=== PATIENT | female | born 1990 | race Caucasian/White ===

== ENCOUNTER 2016-06-02 13:09 | Emergency (ER) | payer OTHER ==
--- NOTE | 2016-06-02 14:04 | ED ---
Psych HPI - General Chief Complaint: Psychiatric Symptoms Stated Complaint: Mental health Time Seen by Provider: 06/02/16 13:20 Source: patient, police, RN notes reviewed Mode of arrival: ambulatory Limitations: no limitations - History of Present Illness Initial Comments: 25-year-old female brought to emergency department by police for psychiatric evaluation. Patient states that she made suicidal threats to her boyfriend. Patient states that she stated that she just wants to crawl underneath [employer]. Patient states that she has no plan. Denies any illicit drug use or alcohol use. Patient has a history of psychiatric problems. Patient states she has taken her medications. She states she is just stressed out. - Related Data Previous Rx's Medication Instructions Recorded OXcarbazepine [Trileptal] 150 mg PO BID #60 tab 10/31/15 LORazepam [Ativan] 0.5 mg PO BID #6 tab 06/02/16 Allergies Allergy/AdvReac Type Severity Reaction Status Date / Time latex Allergy Rash/Hives Verified 06/02/16 13:36 Sulfa (Sulfonamide Allergy Rash/Hives Verified 06/02/16 13:36 Antibiotics) Review of Systems ROS Statement: Those systems with pertinent positive or pertinent negative responses have been documented in the HPI. ROS Other: All systems not noted in ROS Statement are negative. Past Medical History Past Medical History: Hypertension Additional Past Medical History / Comment(s): 4, para 2, AB 1. Patient has had preeclampsia with 2 pregnancies. Patient has been seeking care with Dr. Noguera. History of Any Multi-Drug Resistant Organisms: None Reported Past Surgical History: Appendectomy Past Anesthesia/Blood Transfusion Reactions: No Reported Reaction Past Psychological History: Anxiety, Bipolar, Depression Smoking Status: Former smoker Past Alcohol Use History: None Reported Additional Past Alcohol Use History / Comment(s): Patient states she is a lifelong nonsmoker. She denies any medical marijuana, marijuana, street drug use. She denies any alcohol use. She has 2 children that are currently with their father. Past Drug Use History: None Reported - Past Family History Father Family Medical History: No Reported History Additional Family Medical History / Comment(s): Father in his 50s from coronary artery disease while undergoing CABG. Sister(s) Family Medical History: No Reported History Additional Family Medical History / Comment(s): Patient has 1 sister with no major medical problems. She does not have any brothers. She has 2 children that have no major medical problems. Mother Family Medical History: No Reported History Additional Family Medical History / Comment(s): Mother is in her 50s with Bipolar and schizophrenia. General Exam General appearance: alert, in no apparent distress Head exam: Present: atraumatic, normocephalic, normal inspection Eye exam: Present: normal appearance, PERRL, EOMI. Absent: scleral icterus, conjunctival injection, periorbital swelling ENT exam: Present: normal exam, normal oropharynx, mucous membranes moist, TM's normal bilaterally Neck exam: Present: normal inspection, full ROM. Absent: tenderness, meningismus, lymphadenopathy Respiratory exam: Present: normal lung sounds bilaterally. Absent: respiratory distress, wheezes, rales, rhonchi, stridor Cardiovascular Exam: Present: regular rate, normal rhythm, normal heart sounds. Absent: systolic murmur, diastolic murmur, rubs, gallop, clicks GI/Abdominal exam: Present: soft, normal bowel sounds. Absent: distended, tenderness, guarding, rebound, rigid Psychiatric exam: Present: agitated, anxious Skin exam: Present: warm, dry, intact, normal color. Absent: rash Course Vital Signs 06/02/16 13:10 Temperature 100 F H Pulse Rate 112 H Respiratory 20 Rate Blood Pressure 134/97 O2 Sat by Pulse 98 Oximetry Medical Decision Making - Medical Decision Making Patient was evaluated by EPS and discussed with psychiatrist on-call. Patient has no suicidal threats she did states that she wanted chronic to rock and because she her boyfriend in which she had an argument with. Patient will be discharged per rectum patient's own psychiatrist. Disposition Clinical Impression: Panic attack, Depression Disposition: HOME SELF-CARE Condition: Stable Instructions: Anxiety (ED) Additional Instructions: Please return to the Emergency Department if symptoms worsen or any other concerns. Prescriptions: LORazepam [Ativan] 0.5 mg PO BID #6 tab Time of Disposition: 15:16
[2016-06-02 15:57] VITALS: BP 130/74; PULSE 70; RESP 18; TEMP 98.6
== END 2016-06-02 15:45 | disposition home or self-care (01) ==
LOC: EC 13:09
DX: F41.0 Panic disorder [episodic paroxysmal anxiety] (principal); F32.9 Major depressive disorder, single episode, unspecified; Z88.2 Allergy status to sulfonamides; Z91.040 Latex allergy status; Z87.891 Personal history of nicotine dependence
CPT/HCPCS: 82075; 99283

== ENCOUNTER 2016-07-29 14:41 | Emergency (ER) | payer OTHER ==
[2016-07-29 15:03] VITALS: BP 142/82; PULSE 105; RESP 18; TEMP 98.9
[2016-07-29] MEDS ORDERED: KETOROLAC 30 MG/ML 1 ML VIAL IM STA (15:16)
[2016-07-29] MEDS ORDERED: ONDANSETRON 4 MG ODT STARTER PACK 2 TAB BTL PO STA (15:16)
--- NOTE | 2016-07-29 15:24 | ED ---
General Adult HPI - General Chief complaint: Headache Stated complaint: migraine/ear & jaw pain Time Seen by Provider: 07/29/16 15:04 Source: patient, RN notes reviewed Mode of arrival: wheelchair Limitations: no limitations - History of Present Illness Initial comments: Chief complaint and history of present illness this is a 25-year-old female here with a complaint of the left sided headache radiating to the left ear left jaw area. Ongoing for 3 days. No nausea no vomiting there is mild photophobia and irritation with sounds. Patient has had pain like this with pregnancies. Denies nausea or vomiting. Denies any weakness denies any stiff neck. Denies any difficulty walking or balance problems. - Related Data Home Medications Medication Instructions Recorded Confirmed Acetaminophen [Tylenol] 325 - 650 mg PO Q6H PRN 07/29/16 07/29/16 Previous Rx's Medication Instructions Recorded OXcarbazepine [Trileptal] 150 mg PO BID #60 tab 10/31/15 Butalb/Acetaminophen/Caffeine 1 cap PO Q4HR #10 cap 07/29/16 [Fioricet 50-300-40 mg Capsule] Ondansetron Odt [Zofran ODT] 4 mg PO Q8HR PRN #5 tab 07/29/16 Allergies Allergy/AdvReac Type Severity Reaction Status Date / Time latex Allergy Rash/Hives Verified 06/02/16 13:36 Sulfa (Sulfonamide Allergy Rash/Hives Verified 06/02/16 13:36 Antibiotics) Review of Systems ROS Statement: Those systems with pertinent positive or pertinent negative responses have been documented in the HPI. Review of systems. Patient has mild photophobia and sound make the headache worse headaches on the left side of her head. She states she also feels that her left upper jaw area. Looking to the left increases the discomfort to the left trapezius muscle. Denies any head injuries. Again no evidence of any meningismus or stiff neck. His chest pain shortness breath GI/ problems. No neuro deficits. All systems are reviewed. Past medical problems high blood pressure when . Surgeries appendectomy. Family history no cancers or aneurysms. She has ALLERGIES to latex and sulfa. She smokes a small amount quit years ago denies alcohol use ROS Other: All systems not noted in ROS Statement are negative. Past Medical History Past Medical History: Hypertension Additional Past Medical History / Comment(s): 4, para 2, AB 1. Patient has had preeclampsia with 2 pregnancies. Patient has been seeking care with Dr. Noguera. History of Any Multi-Drug Resistant Organisms: None Reported Past Surgical History: Appendectomy Past Anesthesia/Blood Transfusion Reactions: No Reported Reaction Past Psychological History: Anxiety, Bipolar, Depression Smoking Status: Former smoker Past Alcohol Use History: None Reported Additional Past Alcohol Use History / Comment(s): Patient states she is a lifelong nonsmoker. She denies any medical marijuana, marijuana, street drug use. She denies any alcohol use. She has 2 children that are currently with their father. Past Drug Use History: None Reported - Past Family History Father Family Medical History: No Reported History Additional Family Medical History / Comment(s): Father in his 50s from coronary artery disease while undergoing CABG. Sister(s) Family Medical History: No Reported History Additional Family Medical History / Comment(s): Patient has 1 sister with no major medical problems. She does not have any brothers. She has 2 children that have no major medical problems. Mother Family Medical History: No Reported History Additional Family Medical History / Comment(s): Mother is in her 50s with Bipolar and schizophrenia. General Exam - General Exam Comments Initial Comments: General: The patient is awake and alert, complains of a headache starting on the left side of the head ongoing for 3 days also affect in the left ear area and left upper jaw. Mild photophobia no nausea no vomiting. Vital signs shows temperature 98.9 pulse 105 respiratory rate 18 pulse ox on percent room air blood pressure 142/82. Elevated systolic noted. Patient be advised to follow- up with her family physician if the headache persists or return emergency room as needed. Eye: Pupils are equal, round and reactive to light, extra-ocular movements are intact ; there is normal conjunctiva bilaterally. No signs of icterus. Ears, nose, mouth and throat: There are moist mucous membranes and no oral lesions. Very poor dentition large number of teeth with caries. As well as fractured posterior #16. Strongly advised to visit a dentist as soon as possible. Neck: The neck is supple, there is no tenderness . Cardiovascular: There is a regular rate and rhythm. No murmur, rub or gallop is appreciated. Respiratory: Lungs are clear to auscultation, respirations are non-labored, breath sounds are equal. No wheezes, stridor, rales, or rhonchi. Gastrointestinal: Soft, non-distended, non-tender abdomen without masses or organomegaly noted. There is no rebound or guarding present. No CVA tenderness. Bowel sounds are unremarkable. Back: There is no tenderness to palpation in the midline. There is no obvious deformity. No rashes noted. Musculoskeletal: Normal ROM, no tenderness, There is no pedal edema. There is no calf tenderness or swelling. Sensation intact. Pulses equal bilaterally 2+. Neurological: CN II-XII intact, There are no obvious motor or sensory deficits. Coordination appears grossly intact. Speech is normal. No focal or lateralizing findings. No balance problems. Skin: Skin is warm and dry and no rashes or lesions are noted. Early shingles was discussed. Patient told she knows the rash along the left side of her head on the left forehead to return emergency room or see her family physician for evaluation for possible shingles. Psychiatric: Cooperative, appropriate mood & affect, normal judgment. History of bipolar disorder. No complaints of any depression at this time. Limitations: no limitations Course Vital Signs 07/29/16 15:01 Temperature 98.9 F Pulse Rate 105 H Respiratory 18 Rate Blood Pressure 142/82 O2 Sat by Pulse 100 Oximetry Medical Decision Making - Medical Decision Making Medical decision making; patient be treated with Toradol IM and Zofran. Given a prescription for Fioricet and Zofran to be taken as directed. Advised to watch for any changes such as a rash that might be evidence of shingles. Told follow with family physician. Get her blood pressure rechecked Disposition Clinical Impression: Headache Disposition: HOME SELF-CARE Condition: Stable Instructions: Tension Headache (ED) Additional Instructions: Apply cold compress over the alternate with heating pad to the area discomfort to the left neck area. Take Fioricet for headaches one every 6 hours. Zofran for nausea. Follow-up with family physician. He does not have one follow-up with Dr. Bloom. Prescriptions: Butalb/Acetaminophen/Caffeine [Fioricet 50-300-40 mg Capsule] 1 cap PO Q4HR #10 cap Ondansetron Odt [Zofran ODT] 4 mg PO Q8HR PRN #5 tab PRN Reason: Nausea Time of Disposition: 15:23
== END 2016-07-29 15:33 | disposition home or self-care (01) ==
LOC: EC 14:41
DX: R51 Headache (principal); Z91.040 Latex allergy status; Z88.2 Allergy status to sulfonamides; Z87.891 Personal history of nicotine dependence; R03.0 Elevated blood-pressure reading, without diagnosis of hypertension; K02.9 Dental caries, unspecified; S02.5XXA Fracture of tooth (traumatic), initial encounter for closed fracture
CPT/HCPCS: 96372; 99283; J1885; S0119

== ENCOUNTER 2016-08-21 18:08 | Emergency (ER) | payer OTHER ==
[2016-08-21 18:35] VITALS: BP 138/83; PULSE 76; RESP 16; TEMP 98.2
--- NOTE | 2016-08-21 20:12 | ED ---
General Adult HPI - General Chief complaint: Anxiety Stated complaint: ANXIETY Time Seen by Provider: 08/21/16 19:51 Source: patient, RN notes reviewed Mode of arrival: ambulatory Limitations: no limitations - History of Present Illness Initial comments: This is a 25-year-old female who presents for medication refill. Patient states she gets panic attacks every day and is unable to see her psychiatrist until Friday. Patient states they will not refill her prescription over the phone. Patient states she usually takes Ativan 1 mg daily to help prevent panic attacks. Patient states she has been out of Ativan for the last 2 days and has had panic attacks that cause her to leave work. Patient states they can happen to her multiple times throughout the day. Patient denies any chance of being . Patient denies any recent fever, chills, shortness breath, chest pain, abdominal pain, nausea/vomiting/diarrhea, back pain, numbness, tingling, hematuria, headache, or visual changes, or any other complaints. - Related Data Previous Rx's Medication Instructions Recorded OXcarbazepine [Trileptal] 150 mg PO BID #60 tab 10/31/15 LORazepam [Ativan] 1 mg PO DAILY PRN #5 tablet 08/21/16 Allergies Allergy/AdvReac Type Severity Reaction Status Date / Time latex Allergy Rash/Hives Verified 08/21/16 19:55 Sulfa (Sulfonamide Allergy Rash/Hives Verified 08/21/16 19:55 Antibiotics) Review of Systems ROS Statement: Those systems with pertinent positive or pertinent negative responses have been documented in the HPI. ROS Other: All systems not noted in ROS Statement are negative. Past Medical History Past Medical History: Hypertension Additional Past Medical History / Comment(s): 4, para 2, AB 1. Patient has had preeclampsia with 2 pregnancies. Patient has been seeking care with Dr. Noguera. History of Any Multi-Drug Resistant Organisms: None Reported Past Surgical History: Appendectomy Past Anesthesia/Blood Transfusion Reactions: No Reported Reaction Past Psychological History: Anxiety, Bipolar, Depression Smoking Status: Former smoker Past Alcohol Use History: None Reported Additional Past Alcohol Use History / Comment(s): Patient states she is a lifelong nonsmoker. She denies any medical marijuana, marijuana, street drug use. She denies any alcohol use. She has 2 children that are currently with their father. Past Drug Use History: None Reported - Past Family History Father Family Medical History: No Reported History Additional Family Medical History / Comment(s): Father in his 50s from coronary artery disease while undergoing CABG. Sister(s) Family Medical History: No Reported History Additional Family Medical History / Comment(s): Patient has 1 sister with no major medical problems. She does not have any brothers. She has 2 children that have no major medical problems. Mother Family Medical History: No Reported History Additional Family Medical History / Comment(s): Mother is in her 50s with Bipolar and schizophrenia. General Exam - General Exam Comments Initial Comments: General: The patient is awake and alert, in no distress, and does not appear acutely ill. Neck: The neck is supple, there is no tenderness or JVD. Cardiovascular: There is a regular rate and rhythm. No murmur, rub or gallop is appreciated. Respiratory: Lungs are clear to auscultation, respirations are non-labored, breath sounds are equal. No wheezes, stridor, rales, or rhonchi. Musculoskeletal: There is no tenderness, full range of motion, strength 5/5 and Sensation intact. Radial pulses 2+ bilaterally. Neurological: A&O x 3. CN II-XII intact, There are no obvious motor or sensory deficits. Coordination appears grossly intact. Speech is normal. Skin: Skin is warm and dry and no rashes or lesions are noted. Psychiatric: Normal mood and affect. Limitations: no limitations Course Vital Signs 08/21/16 18:31 Temperature 98.2 F Pulse Rate 76 Respiratory 16 Rate Blood Pressure 138/83 O2 Sat by Pulse 100 Oximetry Medical Decision Making - Medical Decision Making This is a 25yo female who presents for medication refill for ativan due to panic attacks. Patient states she only receives her Ativan from her psychiatrist and cannot follow up with her psychiatrist until Friday. Patient is requesting Ativan to get her through until Friday to help prevent her panic attacks. Physical exam is within normal limits. I discussed patient will receive a short prescription for Ativan. Discussed that patient should call her doctor tomorrow to see if they can get her in earlier. I discussed return parameters. Discussed that patient should follow up with PCP in one to 2 days or return to the [facility] for any worsening symptoms or for any further concerns. Patient was receptive to this plan and patient will be discharged home. Disposition Clinical Impression: Medication refill, History of panic attacks Disposition: HOME SELF-CARE Condition: Good Instructions: Generalized Anxiety Disorder (ED) Additional Instructions: Please use medication as discussed. Please follow-up with family doctor in the next 2 days of symptoms have not improved. Please return to emergency room if the symptoms increase or worsen or for any other concerns. Prescriptions: LORazepam [Ativan] 1 mg PO DAILY PRN #5 tablet PRN Reason: Anxiety Referrals: None,Stated [Primary Care Provider] - 1-2 days Monica Dixon MD [STAFF PHYSICIAN] - 1-2 days Time of Disposition: 20:12
== END 2016-08-21 20:25 | disposition home or self-care (01) ==
LOC: EC 18:08
DX: Z76.0 Encounter for issue of repeat prescription (principal); F31.9 Bipolar disorder, unspecified; F41.0 Panic disorder [episodic paroxysmal anxiety]; Z79.899 Other long term (current) drug therapy; Z87.891 Personal history of nicotine dependence; Z91.040 Latex allergy status; Z88.2 Allergy status to sulfonamides
CPT/HCPCS: 99282

== ENCOUNTER 2016-08-30 17:48 | Emergency (ER) | payer OTHER ==
[2016-08-30 18:37] VITALS: RESP 18
[2016-08-30] MEDS ORDERED: ONDANSETRON 4 MG/2 ML VIAL IVP STA (20:05)
[2016-08-30] MEDS ORDERED: KETOROLAC 30 MG/ML 1 ML VIAL IVP STA (20:05)
--- NOTE | 2016-08-30 20:08 | ED ---
General Adult HPI - General Chief complaint: Abdominal Pain Stated complaint: PELVIC PAIN Time Seen by Provider: 08/30/16 19:57 Source: patient, RN notes reviewed Mode of arrival: ambulatory Limitations: no limitations - History of Present Illness Initial comments: Patient 25-year-old female who presents emergency room today with chief complaint of increased left lower quadrant pain that began earlier today. She describes it as a pressure. States is worse when she was at work moving around. She does admit to a history of ovarian cyst she was 13 states this feels somewhat similar. States pain is somewhat better at this time she is not currently moving around. She admits to some diarrhea. She denies any other complaint associated symptoms. Patient denies any recent fever, chills, shortness of breath, chest pain, back pain, nausea or vomiting, numbness or tingling, dysuria or hematuria, constipation or diarrhea, headaches or visual changes, or any other complaints. - Related Data Home Medications Medication Instructions Recorded Confirmed OXcarbazepine [Trileptal] 300 mg PO BID 08/30/16 08/30/16 QUEtiapine [SEROquel] 50 mg PO HS 08/30/16 08/30/16 Previous Rx's Medication Instructions Recorded Ibuprofen [Motrin] 600 mg PO Q6HR PRN #40 day 08/30/16 Nitrofurantoin Monohyd/M-Cryst 100 mg PO Q12HR #14 cap 08/30/16 [Macrobid] Allergies Allergy/AdvReac Type Severity Reaction Status Date / Time latex Allergy Rash/Hives Verified 08/30/16 20:21 Sulfa (Sulfonamide Allergy Rash/Hives Verified 08/30/16 20:21 Antibiotics) Review of Systems ROS Statement: Those systems with pertinent positive or pertinent negative responses have been documented in the HPI. ROS Other: All systems not noted in ROS Statement are negative. Past Medical History Past Medical History: Hypertension Additional Past Medical History / Comment(s): borderline personality History of Any Multi-Drug Resistant Organisms: None Reported Past Surgical History: Appendectomy Past Anesthesia/Blood Transfusion Reactions: No Reported Reaction Past Psychological History: Anxiety, Bipolar, Depression Smoking Status: Former smoker Past Alcohol Use History: None Reported Additional Past Alcohol Use History / Comment(s): Patient states she is a lifelong nonsmoker. She denies any medical marijuana, marijuana, street drug use. She denies any alcohol use. She has 2 children that are currently with their father. Past Drug Use History: None Reported - Past Family History Father Family Medical History: No Reported History Additional Family Medical History / Comment(s): Father in his 50s from coronary artery disease while undergoing CABG. Sister(s) Family Medical History: No Reported History Additional Family Medical History / Comment(s): Patient has 1 sister with no major medical problems. She does not have any brothers. She has 2 children that have no major medical problems. Mother Family Medical History: No Reported History Additional Family Medical History / Comment(s): Mother is in her 50s with Bipolar and schizophrenia. General Exam - General Exam Comments Initial Comments: General: The patient is awake and alert, in no distress, and does not appear acutely ill. Eye: Pupils are equal, round and reactive to light, extra-ocular movements are intact. No nystagmus. There is normal conjunctiva bilaterally. No signs of icterus. Ears, nose, mouth and throat: There are moist mucous membranes and no oral lesions. Neck: The neck is supple, there is no tenderness or JVD. Cardiovascular: There is a regular rate and rhythm. No murmur, rub or gallop is appreciated. Respiratory: Lungs are clear to auscultation, respirations are non-labored, breath sounds are equal. No wheezes, stridor, rales, or rhonchi. Gastrointestinal: Present. Normal bowel sounds. Abdomen soft on palpation. Patient does have mild tenderness left lower quadrant. No rebound tenderness. No guarding. No CVA tenderness. Musculoskeletal: Normal ROM, no tenderness. Strength 5/5. Sensation intact. Pulses equal bilaterally 2+. Neurological: A&O x 3. CN II-XII intact, There are no obvious motor or sensory deficits. Coordination appears grossly intact. Speech is normal. Skin: Skin is warm and dry and no rashes or lesions are noted. Psychiatric: Cooperative, appropriate mood & affect, normal judgment. Limitations: no limitations Course Vital Signs 08/30/16 18:34 Temperature 98.7 F Pulse Rate 77 Respiratory 18 Rate Blood Pressure 136/80 O2 Sat by Pulse 99 Oximetry Medical Decision Making - Medical Decision Making Patient reexamined at this time shows no signs of distress. Patient resting comfortably in the stretcher. Abdomen soft nontender on reexam. Patient's ultrasound shows good arterial and venous flow to bilateral ovaries. No evidence for ovarian torsion. No sign of ovarian cyst. Exam somewhat limited due to patient's discomfort. Patient's labs reviewed. Does show rare bacteria and urinalysis. She does admit to some increased urinary frequency. Will be covered with antibiotic culture currently pending. Patient is advised follow- up the plan of the next 2 days. Options of pelvic exam were discussed here in the emergency room which she has declined. Patient will be discharged home continue anti-inflammatories. Advised return for any other concerns. - Lab Data Result diagrams: 08/30/16 20:09 08/30/16 20:09 Lab Results 08/30/16 08/30/16 08/30/16 Range/Units 20:09 20: 20: WBC 8.8 (3.8-10.6) k/uL RBC 4.40 (3.80-5.40) m/uL Hgb 12.0 (11.4-16.0) gm/dL Hct 37.3 (34.0-46.0) % MCV 84.8 (80.0-100.0) fL MCH 27.3 (25.0-35.0) pg MCHC 32.2 (31.0-37.0) g/dL RDW 13.6 (11.5-15.5) % Plt Count 439 (150-450) k/uL Neutrophils % 63 % Lymphocytes % 26 % Monocytes % 4 % Eosinophils % 3 % Basophils % 0 % Neutrophils # 5.6 (1.3-7.7) k/uL Lymphocytes # 2.3 (1.0-4.8) k/uL Monocytes # 0.4 (0-1.0) k/uL Eosinophils # 0.2 (0-0.7) k/uL Basophils # 0.0 (0-0.2) k/uL Sodium 143 (137-145) mmol/L Potassium 4.0 (3.5-5.1) mmol/L Chloride 106 (98-107) mmol/L Carbon Dioxide 25 (22-30) mmol/L Anion Gap 12 mmol/L BUN 10 (7-17) mg/dL Creatinine 0.74 (0.52-1.04) mg/dL Est GFR (MDRD) Af Amer >60 (>60 ml/min/1.73 sqM) Est GFR (MDRD) Non-Af >60 (>60 ml/min/1.73 sqM) Glucose 96 (74-99) mg/dL Calcium 9.5 (8.4-10.2) mg/dL Total Bilirubin 0.4 (0.2-1.3) mg/dL AST 25 (14-36) U/L ALT 19 (9-52) U/L Alkaline Phosphatase 74 (38-126) U/L Total Protein 7.6 (6.3-8.2) g/dL Albumin 4.4 (3.5-5.0) g/dL Lipase 177 (23-300) U/L Urine Color Yellow Urine Appearance Cloudy H (Clear) Urine pH 6.0 (5.0-8.0) Ur Specific [place] 1.027 (1.001-1.035) Urine Protein Trace H (Negative) Urine Glucose (UA) Negative (Negative) Urine Ketones Negative (Negative) Urine Blood Negative (Negative) Urine Nitrite Negative (Negative) Urine Bilirubin Negative (Negative) Urine Urobilinogen 2.0 (<2.0) mg/dL Ur Leukocyte Esterase Negative (Negative) Urine RBC 1 (0-5) /hpf Urine WBC 2 (0-5) /hpf Ur Squamous Epith Cells 4 (0-4) /hpf Urine Bacteria Rare H (None) /hpf Urine Mucus Rare H (None) /hpf Urine HCG, Qual (Not Detectd) 08/30/16 Range/Units 20:09 WBC (3.8-10.6) k/uL RBC (3.80-5.40) m/uL Hgb (11.4-16.0) gm/dL Hct (34.0-46.0) % MCV (80.0-100.0) fL MCH (25.0-35.0) pg MCHC (31.0-37.0) g/dL RDW (11.5-15.5) % Plt Count (150-450) k/uL Neutrophils % % Lymphocytes % % Monocytes % % Eosinophils % % Basophils % % Neutrophils # (1.3-7.7) k/uL Lymphocytes # (1.0-4.8) k/uL Monocytes # (0-1.0) k/uL Eosinophils # (0-0.7) k/uL Basophils # (0-0.2) k/uL Sodium (137-145) mmol/L Potassium (3.5-5.1) mmol/L Chloride (98-107) mmol/L Carbon Dioxide (22-30) mmol/L Anion Gap mmol/L BUN (7-17) mg/dL Creatinine (0.52-1.04) mg/dL Est GFR (MDRD) Af Amer (>60 ml/min/1.73 sqM) Est GFR (MDRD) Non-Af (>60 ml/min/1.73 sqM) Glucose (74-99) mg/dL Calcium (8.4-10.2) mg/dL Total Bilirubin (0.2-1.3) mg/dL AST (14-36) U/L ALT (9-52) U/L Alkaline Phosphatase (38-126) U/L Total Protein (6.3-8.2) g/dL Albumin (3.5-5.0) g/dL Lipase (23-300) U/L Urine Color Urine Appearance (Clear) Urine pH (5.0-8.0) Ur Specific [place] (1.001-1.035) Urine Protein (Negative) Urine Glucose (UA) (Negative) Urine Ketones (Negative) Urine Blood (Negative) Urine Nitrite (Negative) Urine Bilirubin (Negative) Urine Urobilinogen (<2.0) mg/dL Ur Leukocyte Esterase (Negative) Urine RBC (0-5) /hpf Urine WBC (0-5) /hpf Ur Squamous Epith Cells (0-4) /hpf Urine Bacteria (None) /hpf Urine Mucus (None) /hpf Urine HCG, Qual Not Detected (Not Detectd) Disposition Clinical Impression: Abdominal pain Disposition: HOME SELF-CARE Instructions: Abdominal Pain (ED) Additional Instructions: Please use medication as discussed. Please follow-up with family doctor /OB/ REPAIR MANAGER in the next 2 days. Please return to emergency room if the symptoms increase or worsen or for any other concerns. Prescriptions: Ibuprofen [Motrin] 600 mg PO Q6HR PRN #40 day PRN Reason: Pain Nitrofurantoin Monohyd/M-Cryst [Macrobid] 100 mg PO Q12HR #14 cap Referrals: None,Stated [Primary Care Provider] - 1-2 days Time of Disposition: 21:23
[2016-08-30 20:39] LABS: Basophils % (A) 0 %; CH 27.8; CHCM 32.9; Eosinophils # (A) 0.2 k/uL (0-0.7); Eosinophils % (A) 3 %; HCT 37.3 % (34.0-46.0); HDW 3.05; Luc % (Auto) 4; Lymphocytes # (A) 2.3 k/uL (1.0-4.8); Lymphocytes % (A) 26 %; MCH 27.3 pg (25.0-35.0); MCHC 32.2 g/dL (31.0-37.0); MCV 84.8 fL (80.0-100.0); Mean Platelet Volume 7.3; Monocytes # (A) 0.4 k/uL (0-1.0); Monocytes % (A) 4 %; Neutrophils # (A) 5.6 k/uL (1.3-7.7); Neutrophils % (A) 63 %; RDW 13.6 % (11.5-15.5); WBC 8.8 k/uL (3.8-10.6); WBC (Perox) 9.23
[2016-08-30 20:45] LABS: Appearance,Urine Cloudy (Clear); Bacteria,Urine Rare /hpf; Bilirubin,Urine Negative (Negative); Glucose,Urine (UA) Negative (Negative); Ketones,Urine Negative (Negative); Leukocyte Esterase,Urine Negative (Negative); Mucus,Urine Rare /hpf; Nitrite,Urine Negative (Negative); Particle Count 7670; Protein,Urine Trace (Negative); RBC,Urine 1 /hpf (0-5); Specific Gravity,Urine 1.027 (1.001-1.035); Squamous Epithelial Cell,Urine 4 /hpf (0-4); UA Billing (MACRO vs. MICRO) MICRO; WBC,Urine 2 /hpf (0-5)
[2016-08-30 20:51] LABS: ALT 19 U/L (9-52); AST 25 U/L (14-36); Alkaline Phosphatase 74 U/L (38-126); Anion Gap 12 mmol/L; Blood Urea Nitrogen 10 mg/dL (7-17); Calcium 9.5 mg/dL (8.4-10.2); Carbon Dioxide 25 mmol/L (22-30); Chloride 106 mmol/L (98-107); Glucose 96 mg/dL (74-99); Non-African American GFR(MDRD) >60 (>60 ml/min/1.73 sqM); Sodium 143 mmol/L (137-145); Total Bilirubin 0.4 mg/dL (0.2-1.3); Total Protein 7.6 g/dL (6.3-8.2)
--- NOTE | 2016-08-30 21:10 | US ---
EXAMINATION TYPE: US transvaginal DATE OF EXAM: 08/30/2016 8:43 PM COMPARISON: NONE CLINICAL HISTORY: pain. Pt states LLQ pain, LMP lasted 3 weeks. Date of LMP: 08/09/2016 TECHNIQUE: Transvaginal (TV) EXAM MEASUREMENTS: Uterus: 8.7 x 4.4 x 5.3 cm Endometrial Stripe: 0.7 cm Right Ovary: 2.7 x 1.7 x 2.9 cm Left Ovary: 2.3 x 2.0 x 1.9 cm 1. Uterus: Anteverted wnl 2. Endometrium: wnl 3. Right Ovary: wnl, follicles 4. Left Ovary: wnl, follicles Spectral, color and waveform doppler imaging shows good arterial and venous flow within the ovaries ; there is no evidence for ovarian torsion. 5. Bilateral Adnexa: wnl 6. Posterior cul-de-sac: wnl IMPRESSION: 1. NO SONOGRAPHIC CORRELATE FOR THE PATIENT'S SYMPTOMS. 2. DIFFICULT EXAM, THE PATIENT WAS IN EXTREME PAIN DURING EXAM.
[2016-08-30 21:34] VITALS: BP 128/79; PULSE 72; TEMP 98
== END 2016-08-30 21:38 | disposition home or self-care (01) ==
LOC: EC 17:48
DX: R10.32 Left lower quadrant pain (principal); R19.7 Diarrhea, unspecified; F31.9 Bipolar disorder, unspecified; F41.9 Anxiety disorder, unspecified; Z87.891 Personal history of nicotine dependence; Z79.899 Other long term (current) drug therapy; Z88.2 Allergy status to sulfonamides; Z91.040 Latex allergy status
CPT/HCPCS: 36415; 80053; 83690; 85025; 81001; 81025; 93975; 76830; 99284; 96374; 96375; J2405; J1885